=== PATIENT | female | born 1945 | race Caucasian/White ===

== ENCOUNTER → 2024-03-17 13:24 | Outpatient (BNVA) | payer MEDICARE, SELFPAY | PROVIDERS: PCP Family Medicine; Referring Provider Family Medicine; Visit Provider Internal Medicine Cardiovascular Disease | DX: R07.9 Chest pain, unspecified (principal) | CPT/HCPCS: 93005 ==

== ENCOUNTER 2024-04-09 09:17 | Outpatient (CLI) | payer MEDICARE, SELFPAY ==
[2024-04-09 09:44] VITALS: BMI 31.4
--- NOTE | 2024-04-09 09:44 | ECG_ITS ---
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 Baseline heart rate was 80 beats per minute. Baseline blood pressure was 159/111 millimeters of mercury. Target heart rate was 141 beats per minute. Maximum heart rate achieved was 156, which was 110% of the target heart rate. Maximum blood pressure was 195/111 millimeters of mercury. Total exercise time was 3 minutes 29 sec. Maximum METs achieved was 7.0, maximum VO2 was 24.5. The reason for ending the test was maximum effort achieved, the patient complained of shortness of breath during the stress test, which then resolved at the end of the test. ELECTROCARDIOGRAM: BASELINE: Showed sinus rhythm, right axis, poor R wave progression in the anterolateral leads perhaps old myocardial infarction EXERCISE: At the peak exercise level, very frequent PVCs noted, no significant ST-T changes suggestive of ischemia noted otherwise noted RECOVERY: During the recovery period, heart rate dropped appropriately. Inferolateral significant ST-T mild depression noted which continued beyond 6 minutes of recovery CONCLUSION: 1. Exercise capacity poor 2. Heart rate response was tachycardic 3. Blood pressure response was hypertensive. 4. Symptoms not suggestive of ischemia. 5. Electrocardiogram portion of the stress test was equivocal for ischemia. Multiple premature ventricular contraction at peak exercise level noted Electronically Signed On 04-10-2024 13:45:12 BOOK COVERER by DEDE LAM [email or web address]
--- NOTE | 2024-04-09 09:45 | NMCV_ITS ---
NM marcelina perf SPECT r/s* [id number] Dariana Corley Age: 78 Gender: F : 1945 Exam Date: 04/09/2024 10:28 Ordering Phys: Dede Lam MD ([email or web address]) Technologist: CHARITY Rojas Exam Location: [facility] Indications: CP STRESS TEST Please see separate stress test report in [facility] for full findings IMAGE PROTOCOL Rest/Stress 1 Exercise Day Radiopharmaceutical Dose (mCi) Administration Site Administered by Rest: Tc-99m 10.3 IV CHARITY Christianson Sestamibi Stress:Tc-99m 33 IV CHARITY Rojas Sestamiapril Rest: 09-Apr-2024 60 Discovery 630 Stress: 09-Apr-2024 15 Discovery 630 Radiopharmaceutical was injected at 100% maximum heart rate. Images obtained in supine and prone position. SPECT RESULTS Technical Quality: Good Raw Data Analysis: Normal Image Corrections: No attenuation or motion correction applied Summed Stress Score: 4 Summed Rest Score: 1 Summed Difference Score: 3 PERFUSION FINDINGS There is a medium sized area of moderate intensity, reversible perfusion defect seen in the inferolateral wall. This is consistent with medium sized area of ischemia seen in the left circumflex artery territory. Attenuation artifact can not be ruled out. Clinical correlation is required. FUNCTIONAL RESULTS (calculated via Gated SPECT) Stress Image LV EF (%): 84 Stress EDV (mL):56 TID: 1 Stress ESV (mL):9 FUNCTIONAL FINDINGS: There is normal left ventricular systolic function. IMPRESSIONS 1. Medium sized area of ischemia seen in the left circumflex artery territory. Attenuation artifact can not be ruled out. Clinical correlation is required. 2. LV systolic function is normal Garth Prater MD (Electronically Signed) Final Date: 10 April 2024 10:27 S
[2024-04-09 11:25] VITALS: BP 162/92; PULSE 92
== END 2024-04-09 09:18 | disposition home or self-care (01) ==
PROVIDERS: PCP Family Medicine; Visit Provider Internal Medicine Cardiovascular Disease
DX: I25.9 Chronic ischemic heart disease, unspecified (principal); R94.39 Abnormal result of other cardiovascular function study
CPT/HCPCS: 36415; 78452; 93017; A9500

== ENCOUNTER 2024-04-23 05:55 | Outpatient (CLI) | payer MEDICARE, SELFPAY ==
[2024-04-23] VITALS (30 sets, daily range): BP systolic 101–151; BP diastolic 61–91; PULSE 53–80; RESP 15–26; TEMP 36.3–36.6; O2SAT 92–96; BMI 31.6
[2024-04-23 06:25] LABS: Basophils # 0.1 10^3/uL (0.0-0.1); Basophils % 0.9 %; Eosinophils # 0.3 10^3/uL (0.0-0.8); Eosinophils % 3.7 %; Hematocrit 48.2 % (36-47); Lymphocytes # 1.2 10^3/uL (0.8-4.8); Lymphocytes % 18.2 %; Mean Corpuscular HGB Conc 33.2 g/dL (30-55); Mean Corpuscular Hemoglobin 30.3 pg (27-33); Mean Corpuscular Volume 91.3 fl (85-98); Mean Platelet Volume 9.7 fL (7.4-10.4); Monocytes # 0.5 10^3/uL (0.2-0.9); Monocytes % 7.7 %; Neutrophils # 4.68 10^3/uL (1.8-7.7); Neutrophils % 69.4 %; Nucleated Red Blood Cells % 0 %; Platelet Count 253 10^3/cmm (157-399); Red Blood Count 5.28 10^6/uL (3.85-5.65); Red Cell Distribution Width 14.1 % (12.1-15.1); White Blood Count 6.75 10^3/uL (3.29-11.43)
[2024-04-23] MEDS: diphenhydrAMINE 50 mg Capsule PO (06:34)
[2024-04-23 06:40] LABS: Blood Urea Nitrogen 12 mg/dL (8-23); Calcium 9.5 mg/dL (8.5-10.5); Carbon Dioxide 28 mmol/L (22-29); Chloride 102 mmol/L (98-107); Creatinine Clr Calc Pharmacy 64.0398; Glucose 99 mg/dL (65-115); Osmolality Calculated 294 mOsm/kg (285-295); Sodium 142 mmol/L (136-145)
[2024-04-23 06:44] LABS: Anion Gap 15.7 (5-19); Potassium 3.7 mmol/L (3.5-5.1)
--- NOTE | 2024-04-23 07:00 | XACV_ITS ---
Ht: 168 cm Wt: 89 kg BSA: 2.06 m2 Gender: Female : 1945 Any Known Allergies: Other Exam Priority: Routine Indication(s): - Abnormal adenosine stress study Procedure(s): Procedure Description: Diagnostic procedure Procedure Description: PCI procedure Procedure Description: Drug Eluting Coronary Stent Procedure Description: PTCA Procedure Description: Miscellaneous Procedure Description: ACT Procedure Description: Coronary Angiography Genaro CELAYA; Diagnostic Cath Status: Elective Diagnostic Findings * Left Main has no disease. * Proximal Left Anterior Descending: moderate 50% stenosis, PEE: 3 flow. * Mid Right Coronary Artery: mild 40% stenosis, PEE: 3 flow. * Distal Right Coronary Artery: mild 40% stenosis, PEE: 3 flow. * Mid Circumflex: subtotal occlusion, PEE: 3 flow. * Coronary angiography shows right dominance. PCI Indication: Other Interventional Findings * Mid Circumflex: 99% stenosis treated with a AB TREK 2.50X12 RX BALLOON, IZAIAH López TAHIRA 3.0X12 JERRY, and IZAIAH DONALDSON EUPHORA RX [id number] BALLOON. 0% residual stenosis, PEE: 3 flow. Conclusions 1. There is subtotal occlusion coronary artery disease with three vessel disease. 2. Mid Circumflex was treated with a Balloon, Drug Eluting Stent, and Balloon. Recommendations * 1-Return to inpatient for close monitoring and routine cath care 2-Risk factor modification for secondary prevention 3-Statin and aspirin 81 mg life-long, if tolerated 4-Patient was pre-loaded with 300 mg of Plavix, continue Plavix 75mg p.o. daily for at least one year. We will assess at the end of one year again to continue if further or not 5-Continue optimal medical management 6-Follow up with Dr. aLm in four weeks and your primary care in 10 days. Interventional RX Recommendation: PCI w/o planned CABG Diagnostic RX Recommendation: PCI w/o planned CABG Pressures Phase:Rest AO : 136 / 82 ( 106 ) @ 7:47:00 AM 131 / 93 ( 112 ) @ 7:52:00 AM 124 / 64 ( 79 ) @ 7:57:00 AM 124 / 68 ( 95 ) @ 8:04:00 AM 83 / 55 ( 64 ) @ 8:09:00 AM 112 / 74 ( 90 ) @ 8:10:00 AM Clinical Evaluation EBL: 5mL-10mL Procedural Details Procedure Consent Obtained. Admit Source: Out Patient. Current Diagnosis : Chest Pain. Pre-Procedure Time Out. Identified patient by full name and date of as verbalized by the patient/guarantor. Does the consent match the physician's order: Yes. Accurate & Complete Informed Consent: Yes. Inpatient/Outpatient History & Physical on Chart: Yes. If H&P is completed, is and addenduem needed: No; If yes, is the addendum complete: N/A. Visualize and Verify Site with Patient/Guarantor: N/A. Relevant Radiology Images available: N/A. The risks, benefits, and alternatives of sedation and/or procedure were discussed by physician. The patient agrees to continue. Procedure started. [facility] Clinical Fraility Score: 3: Managing Well. Operations Specialist Indications: Other. Chest Pain Symptom Assessment: Typical Angina Symptoms. Cardiovascular Instability: No. Correct patient, site and procedure confirmed by cath team. Current diagnosis: Chest Pain; Abnormal Stress Test. PERRLA. Strong, equal hand chain puller bilaterally. Lungs clear x 5 lobes. IV Site on Arrival: 20 gauge in the right anticubital. Pre Procedural Pulses: bilateral posterior tibial was 1+. Pre Procedural Pulses: bilateral radial was 3+. Pre Procedural Pulses: bilateral dorsalis pedis was Doppled. right groin was prepped with chloroprep then draped in the usual sterile fashion. right radial was prepped with chloroprep then draped in the usual sterile fashion. Physician notified. Baseline sample Acquired. HR: 73 BPM. Physician arrived. Physician scrubbed in. Family updated by MD prior to the start of the procedure. Immediate Pre-Procedure Time Out. Correct Patient: Yes; Correct Procedure: Yes; Correct Site: Yes; Correct Patient Position: Yes; Correct Supplies: Yes; Dried Flammable Prep: Yes; Blood Products Available: N/A;. Lidocaine 1% infiltrated to the right radial. Arterial access obtained. A 5 turkmen TIG catheter in over wire. Multiple views taken of left coronary artery. Catheter redirected to the RCA. Multiple views taken of right coronary artery. Catheter removed over the exchange wire. 6 turkmen XB 3 guide catheter was inserted over the wire. Guide seated in the LCS. Runthrough guidewire was advanced through the guide catheter to lesion in the mid Circ. Guidewire advanced across lesion. ACT drawn. Results 175 seconds. Therapeutic limits - pre-heparin administration 90-150 seconds and monitoring heparin during a vascular procedure >250 seconds. 2ND Runthrough guidewire was advanced through the guide catheter to lesion in the mid Circ. Guidewire advanced across lesion. Wire #1 Removed. Inflation number : 1 A AB TREK 2.50X12 RX BALLOON was prepped and advanced across the Mid CX , then inflated to 14 MIRIAN for 0:12 seconds. Inflation number: 2 The AB TREK 2.50X12 RX BALLOON was reinflated across the Mid CX, to 14 MIRIAN for 0:09 seconds. Balloon out. Results checked. Inflation Number : 3 A MDT R TAHIRA 3.0X12 JERRY -Lot Number# [id number] was prepped and advanced across the Mid CX. The stent was deployed at 14 MIRIAN for 0:19 seconds. EXP 07/23/2024. Stent balloon out over wire. Results checked. Inflation number : 4 A MDT NC EUPHORA RX [id number] BALLOON was prepped and advanced across the Mid CX , then inflated to 12 MIRIAN for 0:14 seconds. Inflation number: 5 The MDT NC EUPHORA RX 3.01K26UO BALLOON was reinflated across the Mid CX, to 10 MIRIAN for 0:15 seconds. Inflation number: 6 The MDT MENDOZA EUPHORA RX 3.52H00QH BALLOON was reinflated across the Mid CX, to 12 MIRIAN for 0:13 seconds. Balloon out. Results checked. ACT drawn. Results out of range hi seconds. Therapeutic limits - pre-heparin administration 90-150 seconds and monitoring heparin during a vascular procedure >250 seconds. Wire out. Results checked. Guide catheter out. Post-op diagnosis: PCI TO THE MID CIRCUMFLEX. [id number]. Fluoro: 10:01. Contrast type used: Omnipaque 300 mgI/mL, 500 mL bottle. Complications: None. Estimated blood loss: 5mL-10mL. Responsiveness - Normal response to verbal stimuli; alert and oriented, PERRLA. Airway - Unaffected, no intervention required; spontaneous ventilation. Circulation: W/N/L, pulses unchanged. Nausea/Vomiting: No. Medication waste: Lidocaine- 18 ml, Nitro- 49.8 mg, Heparin-4000 units, Versed- 1 mg, Fentanyl- 50 mcg. ACT drawn. Results out of range hi seconds. Therapeutic limits - pre-heparin administration 90-150 seconds and monitoring heparin during a vascular procedure >250 seconds. A TR Band was successful obtaining hemostatsis at the Right Radial artery insertion site. TR band placed. Hemostasis obtained. Post Procedure: Pulses reassessed and unchanged. PERRLA. Strong, equal hand chain puller bilaterally. No VTE prophylaxis required. Total IV fluids: 50 mL. Procedure completed. Vital chart was stopped. Patient transferred by wheelchair to 1st floor. Access Site Site: Right Radial artery Sheath Size: 6 Fr Hemostasis Method: TR Band Hemostasis Success: Successful Procedure Medications Start: 7:38 AM Stop: 7:38 AM Medication: Versed 1 mg and Fentanyl 25 mcg Amount: 1 Route: I.V. Start: 7:43 AM Stop: 7:43 AM Medication: Versed Amount: 1 mg Route: I.V. Start: 7:45 AM Stop: 7:45 AM Medication: Nitrogylcerin Amount: 200 mcg Route: I.A. Start: 7:46 AM Stop: 7:46 AM Medication: Heparin Amount: 5000 units Route: I.V. Start: 7:59 AM Stop: 7:59 AM Medication: Heparin Amount: 7000 units Route: I.V. Start: 8:03 AM Stop: 8:03 AM Medication: Versed 1 mg and Fentanyl 25 mcg Amount: 1 Route: I.V. I, the attending physician, have reviewed and verified all procedure medications. Yes, all medications given per verbal order History/Risk Factors Hypertension: Yes Dyslipidemia: Yes Peripheral Arterial Disease (PAD): No Myocardial Infarction (HI): No Obesity: No Renal Disease: No Tobacco Use: Former Prior Interventions PCI: Yes CABG: No Valve Surgery: No Date of PCI: 05/31/2023 Report Signatures Finalized by Dede Lam MD on 04/23/2024 08:40 AM
--- NOTE | 2024-04-23 07:30 | W.PM.OPSFHP ---
Same Day Surgery H&P Indication for Procedure/HPI DATE OF PROCEDURE: April 23, 2024 CHIEF COMPLAINT/INDICATIONFOR SURGICAL PROCEDURE: Abnormal stress test Chest pain History of coronary artery disease PREOP DIAGNOSIS: Abnormal stress test/chest pain PLANNED PROCEDURE: Operation Date: 04/23/24 07:00 Proposed Procedures p Cardiac Catheterization(Left) - Dede Lam MD 78-year-old female past medical history significant for hypertension coronary artery disease who had stent last year to circumflex artery in [place], she was complaining of worsening of chest pain along with shortness of breath underwent stress test shows moderate size ischemia, it is the reason patient is here for left heart cath/PCI if indicated. ROS Chest pain Medications/Allergies* Home Medications Medication Instructions Recorded Confirmed Type apixaban 5 mg tablet (Eliquis) 2.5 mg PO BID 03/17/24 04/22/24 History atenolol 25 mg tablet 25 mg PO DAILY 03/17/24 04/22/24 History clopidogrel 75 mg tablet 75 mg PO DAILY 03/17/24 04/22/24 History hydrochlorothiazide 25 mg tablet 25 mg PO DAILY 03/17/24 04/22/24 History losartan 100 mg tablet 100 mg PO DAILY 03/17/24 04/22/24 History nitroglycerin 0.4 mg sublingual 0.4 mg sublingual Q5M PRN Chest 03/17/24 04/22/24 History tablet Pain rosuvastatin 40 mg tablet 40 mg PO DAILY 03/17/24 04/22/24 History Allergies/Adverse Reactions Allergy/AdvReac Type Severity Reaction Status Date / Time lisinopril Allergy Severe cough Verified 04/22/24 10:25 Sulfa (Sulfonamide Allergy Unknown Verified 04/22/24 10:25 Antibiotics) Current Medications: Generic Name Dose Route Start Last Admin Trade Name Freq PRN Reason Stop Dose Admin Sodium Chloride 1,000 mls @ 50 mls/hr 04/23/24 06:00 04/23/24 06:34 Sodium Chloride 0.9% IV 04/24/24 01:59 Not Given .Q20H ONE Pertinent History/Comorbid Conditions* Medical History (Updated 04/15/24 @ 20:00 by Dede Lam MD) HTN (hypertension), benign CAD (coronary artery disease) Hypertension Afib Family History (Updated 03/17/24 @ 13:38 by Padmini Reid LPN) CAD (coronary artery disease) Father Daughter Sister Cancer Father Mother Denies family history of Diabetes Social History Smoking and tobacco/nicotine status: never used tobacco/nicotine Quit status (tobacco/nicotine): has quit using Year quit tobacco: 1975 Alcohol intake: never Substance/Drug Use: never Pertinent Exam Findings alert, oriented x 3, clear to auscultation bilaterally, regular rate & rhythm, operative site marked and procedure specific exam findings Conscious Sedation Assessment PATIENT ASSESSED PRIOR TO SEDATION, WITH NO CHANGE NOTED: Yes AIRWAY EVAL/ANESTHESIA PLAN: ASA II, Risks, benefits & alternatives of sedation and/or procedure discussed and Patient agrees to continue as planned Recommendations Other Other Plans: Patient has been explained all risk-benefit and alternative for the procedure she understand 2% risk of stroke major bleed and 6% risk of contrast-induced nephropathy minor bleeding hematoma urgent emergent surgery vascular injury. She would like to proceed with it. Coding Level of Care Code Acute Code for Lynne Blanca
--- NOTE | 2024-04-23 08:28 | P.PCN_ITS ---
Procedure Note: Date of procedure: 04/23/24 Pre-procedure diagnosis: PCI to mid circumflex Procedure: PCI to mid circumflex for 99% severe stenosis. It was treated with single drug- eluting stent postdilated with noncompliant balloon. Excellent angiographic result PEE-3 flow was achieved. Otherwise left main LAD and RCA has luminal irregularity without significant stenosis. Please load patient with 300 mg of Plavix Continue 75 mg of Plavix from tomorrow along with aspirin 81 mg Continue statin Continue home meds including atenolol restart apixaban from tonight IV fluid 100 mL/h for next 5 hours Coding Level of Care Code Acute Code for Lynne Fwd
[2024-04-23] MEDS: clopidogrel 300 mg Tablet PO (08:54)
--- NOTE | 2024-04-23 09:24 | PC.NURSE ---
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 Patient has TR band in place at this time. Pulse palpable with warm right hand. No s/s of bleeding or hematoma observed. Light bruising is present. Instructed patient on site care with restrictions and including plan for removing TR band. Patient and family both verbalized complete understanding. Will continue to monitor.
--- NOTE | 2024-04-23 10:57 | PC.NURSE ---
Initiated TR band removal at 0950 removing 2ml of air every 15-20min. Patient report some bleeding. Very little observed. Instilled 3ml of air. Bleeding ceased. No s/s of hematoma formation observed. Provided reinforcement on site care and restrictions. Patient verbalized understanding. Will attempt further air removal at ~1130 and continue to monitor.
--- NOTE | 2024-04-23 13:06 | PC.NURSE ---
TR band removed at 1240. No s/s of bleeding or hematoma formation observed. Instructed patient on site care and restrictions. Patient verbalized complete understanding. Assisted patient up to bathroom. Tolerated well. Will continue to monitor
[2024-04-23] MEDS: apixaban 5 mg Tablet 2.5 MG PO (21:16)
[2024-04-23] MEDS: temazepam 15 mg Capsule PO (21:16)
[2024-04-24 00:31] VITALS: BP 149/88; PULSE 73; RESP 26; TEMP 36.6; O2SAT 93
[2024-04-24 02:27] LABS: Basophils % 0.7 %; Eosinophils # 0.3 10^3/uL (0.0-0.8); Eosinophils % 4.6 %; Hematocrit 44.4 % (36-47); Lymphocytes # 1.6 10^3/uL (0.8-4.8); Lymphocytes % 26.7 %; Mean Corpuscular HGB Conc 32.4 g/dL (30-55); Mean Corpuscular Hemoglobin 30.1 pg (27-33); Mean Corpuscular Volume 92.7 fl (85-98); Mean Platelet Volume 9.5 fL (7.4-10.4); Monocytes # 0.5 10^3/uL (0.2-0.9); Monocytes % 8.6 %; Neutrophils # 3.64 10^3/uL (1.8-7.7); Neutrophils % 59.2 %; Nucleated Red Blood Cells % 0 %; Platelet Count 202 10^3/cmm (157-399); Red Blood Count 4.79 10^6/uL (3.85-5.65); Red Cell Distribution Width 14.1 % (12.1-15.1); White Blood Count 6.14 10^3/uL (3.29-11.43)
[2024-04-24 02:53] LABS: Anion Gap 13.3 (5-19); Blood Urea Nitrogen 13 mg/dL (8-23); Calcium 9.1 mg/dL (8.5-10.5); Carbon Dioxide 30 mmol/L (22-29); Chloride 102 mmol/L (98-107); Creatinine Clr Calc Pharmacy 64.0398; Glucose 101 mg/dL (65-115); Osmolality Calculated 294 mOsm/kg (285-295); Potassium 3.3 mmol/L (3.5-5.1); Sodium 142 mmol/L (136-145)
[2024-04-24 04:13] VITALS: BP 152/84; PULSE 72; RESP 20; TEMP 36.4
[2024-04-24] MEDS: potassium chloride ER 20 mEq Tablet 40 MEQ PO (04:15)
[2024-04-24 05:25] VITALS: PULSE 64
[2024-04-24 06:00] VITALS: PULSE 64
[2024-04-24 07:56] VITALS: BP 157/89; PULSE 73; RESP 19; TEMP 36.6; O2SAT 93
[2024-04-24] MEDS: atenolol 50 mg Tablet 25 MG PO (08:24)
[2024-04-24] MEDS: apixaban 5 mg Tablet 2.5 MG PO (08:24)
[2024-04-24] MEDS: clopidogrel 75 mg Tablet PO (08:24)
[2024-04-24] MEDS: aspirin 81 mg EC Tablet PO (08:24)
--- NOTE | 2024-04-24 10:12 | P.DS_ITS ---
Discharge Providers Date of Admission: 04/23/2024 Date of Discharge: April 24, 2024 Attending Provider at Admission: Dr. Lam Attending Provider at Discharge: Dede Lam MD Primary Care Provider: Karlo Saldivar MD Reason for Visit Reason for Visit: I25.10 Brief History: 78-year-old female past medical history significant for hypertension coronary artery disease who had stent last year to circumflex artery in [place], she was complaining of worsening of chest pain along with shortness of breath underwent stress test shows moderate size ischemia, it is the reason patient is here for left heart cath/PCI if indicated. Hospital Course Hospital Course She underwent coronary angiogram on 04/23/2024 with PCI to the mid circumflex, luminal irregularity of the left main, LAD and RCA without significant stenosis. She is feeling well this morning, no chest pain overnight or today. Blood pressure is well-controlled. No complications with right radial cath site. Will discharge home today continuing Plavix 75 mg daily, aspirin 81 mg daily, rosuvastatin 40 mg daily, atenolol 25 mg daily, losartan 100 mg daily. She can continue isosorbide mononitrate 30 mg daily and hydrochlorothiazide 25 mg daily. Follow-up in the cardiology clinic with the cardiology COUNTER CONTROL OPERATOR in 7 to 10 days. No lifting over 5 pounds for the next 3 days. Physical Exam Const: COMMON NORMALS: no acute distress and patient oriented x3 GENERAL APPEARANCE: cooperative and comfortable ORIENTATION/CONSCIOUSNESS: Yes awake, Yes oriented to person, Yes oriented to place and Yes oriented to time Chest: COMMONS NORMALS: normal inspection of the chest and normal palpation of entire chest wall CHEST: Yes Symmetrical chest wall rise Resp: COMMON NORMALS: normal respiratory effort, No retractions, No use of accessory muscles and clear to auscultation bilaterally EFFORT & INSPECTION: Yes symmetric chest movement AUSCULTATION: clear to auscultation bilaterally Cardio: COMMON NORMALS: regular rate, regular rhythm, S1 normal heart sound present, S2 normal heart sound present, No gallops present (Cardio), No clicks present (Cardio), No murmurs present (Cardio) and No rub (Cardio) RATE: regular rate RHYTHM: regular rhythm HEART SOUNDS: S1 normal heart sound present and S2 normal heart sound present PERIPHERAL PULSES: radial pulses present Extremity: COMMON NORMALS: no pedal edema Neuro: COMMON NORMALS: patient oriented x3 and moves all extremities SENSORIUM/ORIENTATION: Yes oriented to person, Yes oriented to place and Yes oriented to time Discharge Data Studies Completed and Pending Completed Studies During Hospitalization Category Date Time Status ENVIRONMENTAL CONSULTANT request for service Routine Exams 04/23/24 07:00 Completed Laboratory Results WBC 6.14 10^3/uL (3.29-11.43) 04/24/24 01:55 RBC 4.79 10^6/uL (3.85-5.65) 04/24/24 01:55 Hgb 14.40 g/dL (11.27-16.99) 04/24/24 01:55 Hct 44.4 % (36-47) 04/24/24 01:55 MCV 92.7 fl (85-98) 04/24/24 01:55 MCH 30.1 pg (27-33) 04/24/24 01:55 MCHC 32.4 g/dL (30-55) 04/24/24 01:55 RDW 14.1 % (12.1-15.1) 04/24/24 01:55 Plt Count 202 10^3/cmm (157-399) 04/24/24 01:55 MPV 9.5 fL (7.4-10.4) 04/24/24 01:55 Neut % (Auto) 59.2 % 04/24/24 01:55 Lymph % (Auto) 26.7 % 04/24/24 01:55 Childress % (Auto) 8.6 % 04/24/24 01:55 Eos % (Auto) 4.6 % 04/24/24 01:55 Baso % (Auto) 0.7 % 04/24/24 01:55 Neut # (Auto) 3.64 10^3/uL (1.8-7.7) 04/24/24 01:55 Lymph # (Auto) 1.6 10^3/uL (0.8-4.8) 04/24/24 01:55 Childress # (Auto) 0.5 10^3/uL (0.2-0.9) 04/24/24 01:55 Eos # (Auto) 0.3 10^3/uL (0.0-0.8) 04/24/24 01:55 Baso # (Auto) 0.0 10^3/uL (0.0-0.1) 04/24/24 01:55 Nucleated RBC % (auto) 0 % 04/24/24 01:55 Nucleated RBCs # 0.0 /100WBC 04/24/24 01:55 Sodium 142 mmol/L (136-145) 04/24/24 01:55 Potassium 3.3 mmol/L (3.5-5.1) L 04/24/24 01:55 Chloride 102 mmol/L (98-107) 04/24/24 01:55 Carbon Dioxide 30 mmol/L (22-29) H 04/24/24 01:55 Anion Gap 13.3 (5-19) 04/24/24 01:55 BUN 13 mg/dL (8-23) 04/24/24 01:55 Creatinine 0.7 mg/dL (0.5-0.9) 04/24/24 01:55 GFR Calculation Not Reportable 04/24/24 01:55 Glucose 101 mg/dL (65-115) 04/24/24 01:55 Calculated Osmolality 294 mOsm/kg (285-295) 04/24/24 01:55 Calcium 9.1 mg/dL (8.5-10.5) 04/24/24 01:55 Vitals Last Vital Signs Temp 97.9 F 04/24/24 07:56 Pulse 73 04/24/24 07:56 Resp 19 H 04/24/24 07:56 BP 157/89 04/24/24 07:56 Pulse Ox 93 04/24/24 07:56 O2 Del Method Room Air 04/24/24 07:56 Discharge Plan Discharge Patient Disposition: Home Prescriptions: Continued atenolol 25 mg tablet 25 mg PO DAILY clopidogrel 75 mg tablet 75 mg PO DAILY hydrochlorothiazide 25 mg tablet 25 mg PO DAILY losartan 100 mg tablet 100 mg PO DAILY nitroglycerin 0.4 mg tablet, sublingual 0.4 mg sublingual Q5M PRN (Reason: Chest Pain) Rx Instructions: do not exceed 3 doses per episode rosuvastatin 40 mg tablet 40 mg PO DAILY Eliquis 5 mg tablet 2.5 mg PO BID isosorbide mononitrate 30 mg tablet extended release 24 hr 30 mg PO DAILY Qty: 90 3RF Discharge Orders: Discharge Order (Routine); Ordered 04/24/24 Ordered By: Yulisa Ingram Referrals: Karlo Saldivar MD [Primary Care Provider] - 2 weeks Yulisa Ingram FNP [Nurse Practitioner] - 7-10 days Diet: Advance as tolerated Activity: Resume usual activity Patient Instructions: A-fib (Atrial Fibrillation) (GEN), Coronary Angioplasty (DC), Coronary Angioplasty (DC), Chest Pain Stoplight, Post Angiogram Home Care Instructions, Stroke Stoplight Activity Restrictions/Additional Instructions: No lifting over 5 pounds for the next 3 days. Discharge Attestations Time Spent in Discharge Care*: less than 30 min Quality Metrics Clinical Quality Measures [ No reported AMI, CVA or VTE this stay] Coding Level of Care Code Acute Code for Chg Fwd
--- NOTE | 2024-04-24 11:40 | PC.NURSE ---
Patient discharged to home. Instruction provided regarding dx processes, post cath site care with restrictions and no medication changes. Patient verbalized complete understanding. Patient left ambulatory with spouse at side to private vehicle.
== END 2024-04-24 11:40 | disposition home or self-care (01) ==
LOC: CCL 05:56 → CSU 09:30
PROVIDERS: PCP Family Medicine; Visit Provider Internal Medicine Cardiovascular Disease
DX: I25.10 Atherosclerotic heart disease of native coronary artery without angina pectoris (principal); I25.82 Chronic total occlusion of coronary artery; I10 Essential (primary) hypertension; E78.5 Hyperlipidemia, unspecified; Z87.891 Personal history of nicotine dependence; I48.91 Unspecified atrial fibrillation
CPT/HCPCS: 36415; 80048; 85025; 85347; 93454; 96374; 96376; 99152; 99153; C1725; C1769; C1874; C1887; C1894; C9600; J1644; J2250; J3010; J3490; J7030; Q0163; Q9967

== ENCOUNTER → 2024-04-27 09:03 | Outpatient (BNVA) | payer MEDICARE, SELFPAY | PROVIDERS: PCP Family Medicine; Visit Provider Nurse Practitioner Family | DX: I25.10 Atherosclerotic heart disease of native coronary artery without angina pectoris (principal); I10 Essential (primary) hypertension; I48.91 Unspecified atrial fibrillation; Z79.01 Long term (current) use of anticoagulants | CPT/HCPCS: 36415; 80048; 99213 ==